=== PATIENT | male | born 1980 | race Caucasian/White ===

== ENCOUNTER 2016-11-16 04:42 | Emergency (ER) | payer BC ==
[2016-11-16 04:49] VITALS: TEMP 97.1
[2016-11-16] MEDS ORDERED: SODIUM CHLORIDE 0.9% 1,000 ML IV ONE (04:58)
[2016-11-16] MEDS ORDERED: ONDANSETRON 4 MG/2 ML VIAL IVP STA (04:59)
[2016-11-16] MEDS ORDERED: TAMSULOSIN 0.4 MG CAP.ER.24H PO STA (04:59)
[2016-11-16] MEDS ORDERED: KETOROLAC 60 MG/2 ML VIAL IVP STA (04:59)
[2016-11-16] MEDS ORDERED: HYDROmorphone 1 MG/ML 1 ML SYRINGE IVP STA ×2 (04:59→05:50)
--- NOTE | 2016-11-16 05:02 | ED ---
General Adult HPI - General Chief complaint: Abdominal Pain Stated complaint: Possible Kidney Stone Time Seen by Provider: 11/16/16 04:45 Source: patient, RN notes reviewed Mode of arrival: ambulatory Limitations: no limitations - History of Present Illness Initial comments: This is a 36-year-old male who presents emergency Department complaining of left -sided flank pain since earlier today. Patient states the pain got severe today went to the emergency department in [place] they diagnosed with kidney stone. CAT scan. Patient states he went home but the pain got bad about an hour ago grossly came down to our emergency department. Patient states he has prescriptions to fill but he was unable to fill them because no pharmacies were open by the time he was discharged from the emergency department. Patient states he has been nauseated with the pain. Patient states he has had blood in the urine. Patient states she's had a history of kidney stones in the past. Patient also has Crohn's disease and ileostomy. Patient denies any recent fever chills or cough. Patient denies any chest pain or palpitations. - Related Data Home Medications Medication Instructions Recorded Confirmed Cyanocobalamin [Vitamin B-12 1,000 mcg SQ WEEKLY 11/16/16 11/16/16 Injection] Voriconazole [Vfend] 50 mg PO 11/16/16 Allergies Allergy/AdvReac Type Severity Reaction Status Date / Time No Known Allergies Allergy Verified 12/05/15 16:19 Review of Systems ROS Statement: Those systems with pertinent positive or pertinent negative responses have been documented in the HPI. ROS Other: All systems not noted in ROS Statement are negative. Past Medical History Past Medical History: Cancer, GERD/Reflux Additional Past Medical History / Comment(s): crohns (humira), hx. kidney stones , gall stones, hip dislocation, bladder cancer, anemia History of Any Multi-Drug Resistant Organisms: None Reported Past Surgical History: Bowel Resection, Hernia Repair Additional Past Surgical History / Comment(s): bowel resection-2011 ( [facility]). bladder sx cancerous tumor removed, EGD Past Anesthesia/Blood Transfusion Reactions: No Reported Reaction Past Psychological History: No Psychological Hx Reported Smoking Status: Former smoker Past Alcohol Use History: Occasional Additional Past Alcohol Use History / Comment(s): quit smoking 2013, smoked on & off 10-15 yrs. PPD: 1 Past Drug Use History: None Reported - Past Family History Mother Family Medical History: Unable to Obtain General Exam - General Exam Comments Initial Comments: GENERAL: Patient is well-developed and well-nourished. Patient is nontoxic and well- hydrated and is in moderate distress. ENT: Neck is soft and supple. No significant lymphadenopathy is noted. Oropharynx is clear. Moist mucous membranes. Neck has full range of motion without eliciting any pain. EYES: The sclera were anicteric and conjunctiva were pink and moist. Extraocular movements were intact and pupils were equal round and reactive to light. Eyelids were unremarkable. PULMONARY: Unlabored respirations. Good breath sounds bilaterally. No audible rales rhonchi or wheezing was noted. CARDIOVASCULAR: There is a regular rate and rhythm without any murmurs gallops or rubs. ABDOMEN: Soft and nontender with normal bowel sounds. No palpable organomegaly was noted. There is no palpable pulsatile mass. SKIN: Skin is clear with no lesions or rashes and otherwise unremarkable. NEUROLOGIC: Patient is alert and oriented x3. Cranial nerves II through XII are grossly intact. Motor and sensory are also intact. Normal speech, volume and content. Symmetrical smile. MUSCULOSKELETAL: Normal extremities with adequate strength and full range of motion. No lower extremity swelling or edema. No calf tenderness. LYMPHATICS: No significant lymphadenopathy is noted PSYCHIATRIC: Normal psychiatric evaluation. Limitations: no limitations Course Vital Signs 11/16/16 04:46 Temperature 97.1 F L Pulse Rate 82 Respiratory 18 Rate Blood Pressure 131/75 O2 Sat by Pulse 98 Oximetry Medical Decision Making - Medical Decision Making Patient was feeling considerably better but still had some residual pain he has for one more shot before he went home since he could not get his prescription filled later today. Patient had a second dose of Dilaudid. Disposition Clinical Impression: Kidney stone Disposition: HOME SELF-CARE Condition: Good Instructions: Kidney Stones (ED) Referrals: Prashant Sykes III, MD [Primary Care Provider] - 1-2 days Time of Disposition: 05:50
[2016-11-16 05:55] VITALS: BP 123/74; PULSE 78; RESP 16
== END 2016-11-16 06:24 | disposition home or self-care (01) ==
LOC: EC 04:42
DX: N20.0 Calculus of kidney (principal); R11.0 Nausea; Z87.891 Personal history of nicotine dependence; Z79.899 Other long term (current) drug therapy; Z85.51 Personal history of malignant neoplasm of bladder; Z98.890 Other specified postprocedural states
CPT/HCPCS: 99284; 96374; 96376; 96375 ×2; 96361; J2405; J1885; J1170

== ENCOUNTER → 2018-09-03 | Outpatient (CLI) | payer BC ==
--- NOTE | 2018-09-03 17:34 | US ---
EXAMINATION TYPE: US venous doppler duplex LE LT DATE OF EXAM: 09/03/2018 5:17 PM COMPARISON: NONE CLINICAL HISTORY: I83.812 Varicose veins with pain LLE. Patient states having left leg pain and swell ing. No hx of blood clots or on blood thinners. No previous surgeries. SIDE PERFORMED: Left TECHNIQUE: The lower extremity deep venous system is examined utilizing real time linear array sonog brigido with graded compression, doppler sonography and color-flow sonography. VESSELS IMAGED: External Iliac Vein (EIV) Common Femoral Vein Deep Femoral Vein Greater Saphenous Vein * Femoral Vein Popliteal Vein Small Saphenous Vein * Proximal Calf Veins (* superficial vessels) FINDINGS: Grayscale, color doppler, spectral doppler imaging performed of the deep veins of the lower extremities. There is normal flow, compressibility, vascular waveforms. IMPRESSION: NEGATIVE FOR DVT, LEFT LOWER EXTREMITY
== END | disposition home or self-care (01) ==
LOC: RADUSWWP 16:50
PROVIDERS: ATTEND Family Medicine
DX: I83.812 Varicose veins of left lower extremity with pain (principal)

== ENCOUNTER 2019-03-11 01:30 | Emergency (ER) | payer BC ==
[2019-03-11] MEDS ORDERED: SODIUM CHLORIDE 0.9% 1,000 ML IV STA (02:14)
[2019-03-11] MEDS ORDERED: HYDROmorphone 1 MG/ML 1 ML SYRINGE IM STA (02:14)
[2019-03-11] MEDS ORDERED: ONDANSETRON 4 MG/2 ML VIAL IVP STA (02:14)
[2019-03-11 03:18] VITALS: RESP 18
[2019-03-11 03:37] LABS: Appearance,Urine Turbid (Clear); Bilirubin,Urine Negative (Negative); Blood,Urine Small (Negative); Color,Urine Yellow; Glucose,Urine (UA) Negative (Negative); Ketones,Urine Negative (Negative); Leukocyte Esterase,Urine Negative (Negative); Mucus,Urine Rare /hpf; Nitrite,Urine Negative (Negative); Protein,Urine Negative (Negative); RBC,Urine 12 /hpf (0-5); Specific Gravity,Urine 1.018 (1.001-1.035); Uric Acid Crystals,Urine Many /hpf; Urobilinogen,Urine <2.0 mg/dL (<2.0)
--- NOTE | 2019-03-11 04:03 | ED ---
Abdominal Pain HPI - General Chief Complaint: Abdominal Pain Stated Complaint: poss kidney stone Time Seen by Provider: 03/11/19 01:50 Source: patient, family Mode of arrival: wheelchair Limitations: no limitations - History of Present Illness Initial Comments: Patient is a 38-year-old male with history of kidney stones and Crohn's is presenting to the emergency department with a chief complaint of abdominal pain. Patient patient reports an ileostomy due to Crohn's. Patient reports ever since the ileostomy placement he develops "thousands" of any stones. Patient reports he almost passes kidney stones daily. Patient reports the pain is in the left flank region. Patient reports the pain is worse than usual. Patient does not report any urinary retention. Patient denies any increased urgency or frequency. Patient denies any dysuria. Patient denies night sweats fever or chills. Patient does report nausea but no vomiting. - Related Data Home Medications Medication Instructions Recorded Confirmed Cyanocobalamin [Vitamin B-12 1,000 mcg SQ WEEKLY 11/16/16 11/16/16 Injection] Voriconazole [Vfend] 50 mg PO 11/16/16 Previous Rx's Medication Instructions Recorded Tamsulosin [Flomax] 0.4 mg PO DAILY #14 cap 03/11/19 Allergies Allergy/AdvReac Type Severity Reaction Status Date / Time No Known Allergies Allergy Verified 03/11/19 01:36 Review of Systems ROS Statement: Those systems with pertinent positive or pertinent negative responses have been documented in the HPI. ROS Other: All systems not noted in ROS Statement are negative. Past Medical History Past Medical History: Cancer, GERD/Reflux Additional Past Medical History / Comment(s): crohns (humira), hx. kidney stones, gall stones, hip dislocation, bladder cancer( in remission,) anemia History of Any Multi-Drug Resistant Organisms: None Reported Past Surgical History: Bowel Resection, Hernia Repair Additional Past Surgical History / Comment(s): bowel resection-2011 ( [facility]). bladder sx cancerous tumor removed, EGD Past Anesthesia/Blood Transfusion Reactions: No Reported Reaction Past Psychological History: No Psychological Hx Reported Smoking Status: Former smoker Past Alcohol Use History: Occasional Past Drug Use History: Marijuana - Past Family History Mother Family Medical History: Unable to Obtain General Exam Limitations: no limitations General appearance: alert, in no apparent distress Head exam: Present: atraumatic, normocephalic, normal inspection Eye exam: Present: normal appearance, PERRL, EOMI Pupils: Present: normal accommodation ENT exam: Present: normal exam, normal oropharynx, mucous membranes moist, TM's normal bilaterally, normal external ear exam Neck exam: Present: normal inspection, full ROM Respiratory exam: Present: normal lung sounds bilaterally Cardiovascular Exam: Present: regular rate, normal rhythm, normal heart sounds GI/Abdominal exam: Present: soft, normal bowel sounds, hernia (Hernia near ileostomy), other (Ileostomy). Absent: tenderness Extremities exam: Present: normal inspection, full ROM Back exam: Present: normal inspection, full ROM, CVA tenderness (L) Neurological exam: Present: alert, oriented X3 Psychiatric exam: Present: normal affect, normal mood Skin exam: Present: warm, intact, normal color Course Vital Signs 03/11/19 03/11/19 03/11/19 01:33 03:17 04:22 Temperature 98.1 F 98.6 F 98.8 F Pulse Rate 98 88 90 Respiratory 20 18 18 Rate Blood Pressure 156/96 136/78 142/74 O2 Sat by Pulse 97 98 100 Oximetry Medical Decision Making - Medical Decision Making Patient is a 38-year-old male with history of Crohn's and kidney stones presenting to emergency Department with a chief complaint of of kidney stones. Patient reports she develops multiple kidney stones due to his ileostomy bag. Patient reports he passes kidney stones in was daily. She denies urinary obstruction or UTI type symptoms. Patient denies fevers night sweats or chills. Patient does have left flank pain that radiates to the groin region. Patient reports he was not able to pass and kidney stones today. UA is indicative of hematuria. Patient given fluids and analgesia. Patient will be discharged with Flomax and Tylenol 3 starter pack. Patient advised not to take the medication when driving or operating heavy machinery. Patient advised to follow-up with urology. Strict return parameters were thoroughly discussed the patient was worsening and agreeable. Case discussed with physician. - Lab Data Lab Results 03/11/19 Range/Units 02:15 Urine Color Yellow Urine Appearance Turbid (Clear) Urine pH 5.0 (5.0-8.0) Ur Specific [place] 1.018 (1.001-1.035) Urine Protein Negative (Negative) Urine Glucose (UA) Negative (Negative) Urine Ketones Negative (Negative) Urine Blood Small H (Negative) Urine Nitrite Negative (Negative) Urine Bilirubin Negative (Negative) Urine Urobilinogen <2.0 (<2.0) mg/dL Ur Leukocyte Esterase Negative (Negative) Urine RBC 12 H (0-5) /hpf Uric Acid Crystals Many H (None) /hpf Urine Mucus Rare H (None) /hpf Disposition Clinical Impression: Kidney stones Disposition: HOME SELF-CARE Condition: Stable Instructions (If sedation given, give patient instructions): Kidney Stones (ED) Additional Instructions: Please follow with urology. Please return to emergency department if symptoms worsen. Prescriptions: Tamsulosin [Flomax] 0.4 mg PO DAILY #14 cap Is patient prescribed a controlled substance at d/c from ED?: No Referrals: Prashant Sykes III, MD [Primary Care Provider] - 1-2 days Time of Disposition: 04:03
[2019-03-11 04:23] VITALS: BP 142/74; PULSE 90; TEMP 98.8
[2019-03-11] MEDS ORDERED: TAMSULOSIN 0.4 MG CAP.ER.24H PO STA (04:38)
[2019-03-11] MEDS ORDERED: ACET/COD 300 MG/30 MG STARTER PACK 6 TAB BTL PO STA (04:39)
[2019-03-11] MEDS ORDERED: HYDROmorphone 1 MG/ML 1 ML SYRINGE IVP STA (04:39)
== END 2019-03-11 05:01 | disposition home or self-care (01) ==
LOC: EC 01:30
DX: N20.0 Calculus of kidney (principal); Z93.2 Ileostomy status; Z87.891 Personal history of nicotine dependence; Z85.51 Personal history of malignant neoplasm of bladder
CPT/HCPCS: 81001; 99284; 96374; 96375; 96361; 96372; J2405; J1170

== ENCOUNTER 2020-12-03 09:29 | Emergency (ER) | payer BC ==
[2020-12-03 09:36] VITALS: RESP 18
[2020-12-03] MEDS: SODIUM CHLORIDE 0.9% 2,000 ML IV STA (10:01)
[2020-12-03] MEDS: ONDANSETRON 4 MG/2 ML VIAL IVP STA (10:03)
[2020-12-03] MEDS: KETOROLAC 15 MG/ML 1 ML VIAL IVP STA (10:05)
[2020-12-03] MEDS: HYDROmorphone 0.5 MG/0.5 ML SYRINGE IVP STA (10:07)
[2020-12-03 10:12] LABS: Basophils # (A) 0.1 k/uL (0-0.2); Basophils % (A) 1 %; Eosinophils # (A) 0.2 k/uL (0-0.7); Eosinophils % (A) 2 %; HCT 46.1 % (39.0-53.0); HGB 16.2 gm/dL (13.0-17.5); Lymphocytes # (A) 1.9 k/uL (1.0-4.8); Lymphocytes % (A) 19 %; MCH 30.1 pg (25.0-35.0); MCHC 35.1 g/dL (31.0-37.0); MCV 85.9 fL (80.0-100.0); Mean Platelet Volume 7.1; Monocytes # (A) 0.7 k/uL (0-1.0); Monocytes % (A) 7 %; Neutrophils % (A) 70 %; Platelet Count 225 k/uL (150-450); RBC 5.37 m/uL (4.30-5.90); RDW 12.7 % (11.5-15.5)
[2020-12-03 10:17] LABS: Appearance,Urine Cloudy (Clear); Bacteria,Urine Moderate /hpf; Bilirubin,Urine Negative (Negative); Blood,Urine Moderate (Negative); Color,Urine Yellow; Glucose,Urine (UA) Negative (Negative); Ketones,Urine Negative (Negative); Leukocyte Esterase,Urine Large (Negative); Mucus,Urine Rare /hpf; Nitrite,Urine Negative (Negative); Protein,Urine 2+ (Negative); RBC,Urine 147 /hpf (0-5); Specific Gravity,Urine 1.018 (1.001-1.035); Urobilinogen,Urine <2.0 mg/dL (<2.0); WBC,Urine >182 /hpf (0-5)
[2020-12-03 10:23] LABS: ALT 28 U/L (4-49); AST 28 U/L (17-59); African American GFR (CKD) >90 (>60 ml/min/1.73 sqM); Albumin 4.1 g/dL (3.5-5.0); Alkaline Phosphatase 92 U/L (38-126); Amylase 58 U/L (30-110); Anion Gap 7 mmol/L; Blood Urea Nitrogen 14 mg/dL (9-20); Calcium 9.4 mg/dL (8.4-10.2); Carbon Dioxide 25 mmol/L (22-30); Chloride 106 mmol/L (98-107); Glucose 112 mg/dL (74-99); Lipase 186 U/L (23-300); Non-African American GFR(CKD) >90 (>60 ml/min/1.73 sqM); Potassium 4.5 mmol/L (3.5-5.1); Sodium 138 mmol/L (137-145); Total Bilirubin 0.7 mg/dL (0.2-1.3); Total Protein 6.8 g/dL (6.3-8.2)
--- NOTE | 2020-12-03 10:35 | ED ---
Abdominal Pain HPI - General Chief Complaint: Abdominal Pain Stated Complaint: kidney stones, UTI Time Seen by Provider: 12/03/20 09:39 Source: patient, RN notes reviewed Mode of arrival: ambulatory Limitations: no limitations - History of Present Illness Initial Comments: This a 40-year-old male presents emergency Department chief complaint of dysuria, bilateral flank pain. Patient states he was treated for urinary tract infection by PCP 2 weeks ago completed a course antibiotics states it did help somewhat states pain has now worsened. Patient states that some clumps are and within his urine. Patient states she's had a history of multiple kidney stones. Patient states that he has a kidney infection. Patient states his does not feel well slight nausea no vomiting no chest pain or shortness of breath. Patient has a long history of Crohn's and multiple abdominal surgeries. - Related Data Home Medications Medication Instructions Recorded Confirmed Loperamide HCl [Imodium A-D] 2 mg PO QID PRN 12/03/20 12/03/20 Omeprazole Magnesium [PriLOSEC] 20 mg PO DAILY 12/03/20 12/03/20 clonazePAM 0.5 mg PO DAILY 12/03/20 12/03/20 inFLIXimab [Remicade] 1 dose IVPB Q42D 12/03/20 12/03/20 Previous Rx's Medication Instructions Recorded Levofloxacin [Levaquin] 500 mg PO DAILY #14 tab 12/03/20 Allergies Allergy/AdvReac Type Severity Reaction Status Date / Time No Known Allergies Allergy Verified 12/03/20 10:44 Review of Systems ROS Statement: Those systems with pertinent positive or pertinent negative responses have been documented in the HPI. ROS Other: All systems not noted in ROS Statement are negative. Past Medical History Past Medical History: Cancer, GERD/Reflux Additional Past Medical History / Comment(s): crohns (humira), hx. kidney stones, gall stones, hip dislocation, bladder cancer( in remission,) anemia History of Any Multi-Drug Resistant Organisms: None Reported Past Surgical History: Bowel Resection, Hernia Repair Additional Past Surgical History / Comment(s): bowel resection-2011 ( [facility]). bladder sx cancerous tumor removed, EGD Past Anesthesia/Blood Transfusion Reactions: No Reported Reaction Past Psychological History: No Psychological Hx Reported Smoking Status: Never smoker Past Alcohol Use History: Occasional Past Drug Use History: Marijuana - Past Family History Mother Family Medical History: Unable to Obtain General Exam Limitations: no limitations General appearance: alert, in no apparent distress Head exam: Present: atraumatic, normocephalic, normal inspection Eye exam: Present: normal appearance, PERRL, EOMI. Absent: scleral icterus, conjunctival injection, periorbital swelling ENT exam: Present: normal exam, normal oropharynx, mucous membranes moist Neck exam: Present: normal inspection, full ROM. Absent: tenderness, m eningismus, lymphadenopathy Respiratory exam: Present: normal lung sounds bilaterally. Absent: respiratory distress, wheezes, rales, rhonchi, stridor Cardiovascular Exam: Present: regular rate, normal rhythm, tachycardia, normal heart sounds. Absent: systolic murmur, diastolic murmur, rubs, gallop, clicks GI/Abdominal exam: Present: soft, normal bowel sounds. Absent: distended, tenderness, guarding, rebound, rigid Back exam: Present: CVA tenderness (R), CVA tenderness (L) Neurological exam: Present: alert Skin exam: Present: warm, dry, intact, normal color. Absent: rash Course Vital Signs 12/03/20 12/03/20 09:31 11:14 Temperature 97.5 F L 97.8 F Pulse Rate 111 H 89 Respiratory 18 18 Rate Blood Pressure 131/74 142/79 O2 Sat by Pulse 95 98 Oximetry Medical Decision Making - Medical Decision Making Patient has evidence of urinary tract infection CT does not show any evidence of ureteral stone no hydronephrosis. Patient's white count within normal limits. Patient was given 2 g Rocephin and discharged on oral antibiotics with urine culture and close follow-up. - Lab Data Result diagrams: 12/03/20 09:55 12/03/20 09:55 Lab Results 12/03/20 12/03/20 12/03/20 Range/Units 09:55 09:55 09:55 WBC 10.0 (3.8-10.6) k/uL RBC 5.37 (4.30-5.90) m/uL Hgb 16.2 (13.0-17.5) gm/dL Hct 46.1 (39.0-53.0) % MCV 85.9 (80.0-100.0) fL MCH 30.1 (25.0-35.0) pg MCHC 35.1 (31.0-37.0) g/dL RDW 12.7 (11.5-15.5) % Plt Count 225 (150-450) k/uL MPV 7.1 Neutrophils % 70 % Lymphocytes % 19 % Monocytes % 7 % Eosinophils % 2 % Basophils % 1 % Neutrophils # 7.0 (1.3-7.7) k/uL Lymphocytes # 1.9 (1.0-4.8) k/uL Monocytes # 0.7 (0-1.0) k/uL Eosinophils # 0.2 (0-0.7) k/uL Basophils # 0.1 (0-0.2) k/uL Sodium 138 (137-145) mmol/L Potassium 4.5 (3.5-5.1) mmol/L Chloride 106 (98-107) mmol/L Carbon Dioxide 25 (22-30) mmol/L Anion Gap 7 mmol/L BUN 14 (9-20) mg/dL Creatinine 0.92 (0.66-1.25) mg/dL Est GFR (CKD-EPI)AfAm >90 (>60 ml/min/1.73 sqM) Est GFR (CKD-EPI)NonAf >90 (>60 ml/min/1.73 sqM) Glucose 112 H (74-99) mg/dL Plasma Lactic Acid Brian (0.7-2.0) mmol/L Calcium 9.4 (8.4-10.2) mg/dL Total Bilirubin 0.7 (0.2-1.3) mg/dL AST 28 (17-59) U/L ALT 28 (4-49) U/L Alkaline Phosphatase 92 (38-126) U/L Total Protein 6.8 (6.3-8.2) g/dL Albumin 4.1 (3.5-5.0) g/dL Amylase 58 (30-110) U/L Lipase 186 (23-300) U/L Urine Color Yellow Urine Appearance Cloudy (Clear) Urine pH 6.0 (5.0-8.0) Ur Specific [place] 1.018 (1.001-1.035) Urine Protein 2+ H (Negative) Urine Glucose (UA) Negative (Negative) Urine Ketones Negative (Negative) Urine Blood Moderate H (Negative) Urine Nitrite Negative (Negative) Urine Bilirubin Negative (Negative) Urine Urobilinogen <2.0 (<2.0) mg/dL Ur Leukocyte Esterase Large H (Negative) Urine RBC 147 H (0-5) /hpf Urine WBC >182 H (0-5) /hpf Urine WBC Clumps Many H (None) /hpf Urine Bacteria Moderate H (None) /hpf Urine Mucus Rare H (None) /hpf 12/03/20 Range/Units 09:55 WBC (3.8-10.6) k/uL RBC (4.30-5.90) m/uL Hgb (13.0-17.5) gm/dL Hct (39.0-53.0) % MCV (80.0-100.0) fL MCH (25.0-35.0) pg MCHC (31.0-37.0) g/dL RDW (11.5-15.5) % Plt Count (150-450) k/uL MPV Neutrophils % % Lymphocytes % % Monocytes % % Eosinophils % % Basophils % % Neutrophils # (1.3-7.7) k/uL Lymphocytes # (1.0-4.8) k/uL Monocytes # (0-1.0) k/uL Eosinophils # (0-0.7) k/uL Basophils # (0-0.2) k/uL Sodium (137-145) mmol/L Potassium (3.5-5.1) mmol/L Chloride (98-107) mmol/L Carbon Dioxide (22-30) mmol/L Anion Gap mmol/L BUN (9-20) mg/dL Creatinine (0.66-1.25) mg/dL Est GFR (CKD-EPI)AfAm (>60 ml/min/1.73 sqM) Est GFR (CKD-EPI)NonAf (>60 ml/min/1.73 sqM) Glucose (74-99) mg/dL Plasma Lactic Acid Brian 1.6 (0.7-2.0) mmol/L Calcium (8.4-10.2) mg/dL Total Bilirubin (0.2-1.3) mg/dL AST (17-59) U/L ALT (4-49) U/L Alkaline Phosphatase (38-126) U/L Total Protein (6.3-8.2) g/dL Albumin (3.5-5.0) g/dL Amylase (30-110) U/L Lipase (23-300) U/L Urine Color Urine Appearance (Clear) Urine pH (5.0-8.0) Ur Specific [place] (1.001-1.035) Urine Protein (Negative) Urine Glucose (UA) (Negative) Urine Ketones (Negative) Urine Blood (Negative) Urine Nitrite (Negative) Urine Bilirubin (Negative) Urine Urobilinogen (<2.0) mg/dL Ur Leukocyte Esterase (Negative) Urine RBC (0-5) /hpf Urine WBC (0-5) /hpf Urine WBC Clumps (None) /hpf Urine Bacteria (None) /hpf Urine Mucus (None) /hpf Disposition Clinical Impression: Urinary tract infection Disposition: HOME SELF-CARE Condition: Stable Instructions (If sedation given, give patient instructions): Urinary Tract Infection in Men (ED) Additional Instructions: Please return to the Emergency Department if symptoms worsen or any other concerns. Prescriptions: Levofloxacin [Levaquin] 500 mg PO DAILY #14 tab Is patient prescribed a controlled substance at d/c from ED?: No Referrals: Prashant Sykes III, MD [Primary Care Provider] - 1-2 days Lamberto Briseno MD [STAFF PHYSICIAN] - 1-2 days Time of Disposition: 12:11
--- NOTE | 2020-12-03 11:02 | CT ---
EXAMINATION TYPE: CT abdomen pelvis wo con DATE OF EXAM: 12/03/2020 COMPARISON: 05/02/2017 INDICATION: Bilateral flank pain with urination changes. Passing "infection looking clots" per patie nt. DLP: 965.7 mGycm, Automated exposure control for dose reduction was used. CONTRAST: 0 mL of Isovue 300. Study performed without Oral Contrast TECHNIQUE: Axial images were obtained from above the diaphragm to the pubic rami in the axial plane a t 5 mm thick sections. Reconstructed images are reviewed on the computer in the coronal plane. FINDINGS: Limited CT sections are obtained the lung bases. The lung bases are clear. CT ABDOMEN: Liver: Normal Spleen: Normal Pancreas: Normal Adrenal glands: The adrenal glands are normal. Gallbladder: Normal Kidneys: No masses are evident. No hydronephrosis is present. There is a large cyst on the anterior superior pole left kidney measuring 9 cm 4 Hounsfield units. There is a 1.8 cm cyst measuring 15 Roberto nsfield units anterior mid right kidney. There are multiple bilateral nonobstructing renal calcificat ions are present. The larger calcifications at superior pole left kidney measures 0.4 cm. A mid left renal calcification measures up to 0.5 cm. Inferior pole left renal calcification measures 0.4 cm. Pu nctate calcifications are within the right kidney. No hydronephrosis or obstructing stones are eviden t. Aorta: Vascular calcification is within the aorta. Inferior vena cava: Normal. CT PELVIS: Previous large left pelvic ostomy has been surgically repaired. Loops of bowel within the abdomen and pelvis are normal. There are loops of bowel which are incom pletely distended or lack oral contrast limiting their evaluation. Appendix: Not identified. No suspicious inflammatory changes are dilated tubular structures are evide nt Urinary bladder: Normal. Genitourinary structures: Prostate is unremarkable. Osseous structures: No suspicious lytic or sclerotic lesions. IMPRESSIONS: 1. Multiple bilateral nonobstructing renal stones, large stones are on the left. 2. Renal cysts, larger at the superior pole left kidney measures 9 cm.
[2020-12-03 11:18] VITALS: BP 142/79; PULSE 89; TEMP 97.8
[2020-12-03] MEDS: HYDROmorphone 1 MG/ML 1 ML SYRINGE IVP STA (11:18)
== END 2020-12-03 12:24 | disposition home or self-care (01) ==
LOC: EC 09:29
DX: N39.0 Urinary tract infection, site not specified (principal); K21.9 Gastro-esophageal reflux disease without esophagitis; F12.90 Cannabis use, unspecified, uncomplicated; Z87.442 Personal history of urinary calculi
CPT/HCPCS: 36415; 80053; 82150; 83605; 83690; 85025; 81001; 87040; 87086; 74176; 99284; 96374; 96375 ×3; 96376; 96361 ×2; J2405; J0696; J1170 ×2; J1885; 87077; 87186

== ENCOUNTER → 2021-05-30 | Outpatient (CLI) | payer BC ==
[2021-05-30 19:53] LABS: Ferritin 81.8 ng/mL (22.0-322.0)
[2021-05-30 21:52] LABS: % Iron Saturation 26.73 (15.00-50.00); Iron 122 ug/dL (65-175); Total Iron Binding Capacity 456 ug/dL (228-460)
[2021-05-30 22:08] LABS: C Reactive Protein <0.30 mg/dL (0.00-0.80)
== END | disposition home or self-care (01) ==
LOC: LABWHC1 10:49
PROVIDERS: ATTEND Physician Assistant
DX: K50.019 Crohn's disease of small intestine with unspecified complications (principal)
CPT/HCPCS: 36415; 82728; 83540; 83550; 83993; 85652; 86140

== ENCOUNTER → 2022-11-09 | Outpatient (CLI) | payer BC ==
[2022-11-09 14:48] LABS: Basophils # (A) 0.07 X 10*3/uL (0.00-0.10); Basophils % (A) 1.4 %; Eosinophils # (A) 0.11 X 10*3/uL (0.04-0.35); Eosinophils % (A) 2.2 %; HCT 45.6 % (39.6-50.0); Immature Grans, Automated 0.2 %; Lymphocytes # (A) 1.75 X 10*3/uL (0.90-5.00); Lymphocytes % (A) 34.4 %; MCH 29.6 pg (27.0-32.0); MCHC 32.9 g/dL (32.0-37.0); MCV 89.9 fL (80.0-97.0); Mean Platelet Volume 9.7 fL (9.5-12.2); Monocytes # (A) 0.43 X 10*3/uL (0.20-1.00); Monocytes % (A) 8.4 %; NRBC Per 100 WBC 0 /100 WBCS (0.0-0.0); Neutrophils # (A) 2.72 X 10*3/uL (1.80-7.70); Neutrophils % (A) 53.4 %; Platelet Count 269 X 10*3/uL (140-440); RBC 5.07 X 10*6/uL (4.40-5.60); RDW 12.5 % (11.5-14.5); WBC 5.09 X 10*3/uL (4.50-10.00)
[2022-11-09 15:08] LABS: Hepatitis B Surface AB- Quant 3.5 mIU/mL; Hepatitis B Surface Antibody Nonreactive (Nonreactive)
[2022-11-09 15:22] LABS: % Iron Saturation 21.01 (15.00-50.00); African American GFR (CKD) 75.5 (60.0-200.0); Albumin 4.2 g/dL (3.8-4.9); Albumin/Globulin Ratio 1.75 (1.60-3.17); Anion Gap 11.5 mmol/L (10.00-18.00); BUN/Creat Ratio 12.27 Ratio (12.00-20.00); Blood Urea Nitrogen 16.2 mg/dL (9.0-27.0); C Reactive Protein 0.4 mg/dL (0.00-0.80); Calcium 9.5 mg/dL (8.7-10.3); Carbon Dioxide 24.4 mmol/L (20.0-27.5); Ferritin 65.4 ng/mL (22.0-322.0); Globulin 2.4 g/dL (1.6-3.3); Non-African American GFR(CKD) 65.2 (60.0-200.0); Potassium 4.9 mmol/L (3.5-5.5); Total Bilirubin 0.3 mg/dL (0.30-1.20); Total Protein 6.5 g/dL (6.2-8.2)
[2022-11-09 15:58] LABS: Erythrocyte Sedimentation Rate 5 mm/Hr (0-15)
[2022-11-09 17:00] LABS: Hepatitis B Core IgM Nonreactive (Nonreactive); Hepatitis B Surface Antigen Nonreactive (Nonreactive)
== END | disposition home or self-care (01) ==
LOC: LABWHC1 08:51
PROVIDERS: ATTEND Physician Assistant
DX: K50.019 Crohn's disease of small intestine with unspecified complications (principal)
CPT/HCPCS: 36415; 80053; 82306; 82607; 82728; 83540; 83550; 85025; 85652; 86140; 86480; 86705; 86706; 87340

== ENCOUNTER → 2024-02-15 | Outpatient (CLI) | payer BC | END | disposition home or self-care (01) | LOC: LABWHC1 08:00 | PROVIDERS: ATTEND Physician Assistant | DX: Z53.9 Procedure and treatment not carried out, unspecified reason (principal) ==

== ENCOUNTER → 2024-03-11 | Day surgery (SDC) | payer BC ==
[2024-03-11 08:40] VITALS: BP 117/74; PULSE 76; RESP 16; TEMP 97.7
[2024-03-11] MEDS: GLUCAGON 1 MG/ML VIAL IM STA (09:18)
--- NOTE | 2024-03-20 07:05 | MR ---
EXAMINATION TYPE: MR Enterography DATE OF EXAM: 03/12/2024 9:01 AM COMPARISON: 07/14/2015, 12/03/2020 CT CLINICAL INDICATION: Male 43 years old with a history of K56.699 small bowel stricture. Crohn's dise ase. TECHNIQUE: Standard multiplanar, multisequence imaging of the abdomen is performed without and with I V contrast, patient is injected with 11 mL intravenous Gadavist gadolinium contrast. Oral 1500 breeza was given as per enterography protocol. FINDINGS: LOWER CHEST: No significant findings. ABDOMEN Bowel: Suspected postsurgical change to the right lower quadrant terminal ileum. Loop of decompressed bowel in the right lower quadrant without other signs of active Crohn's disease. The small bowel dis tention is inadequate proximally. No evidence to suggest abnormal bowel wall thickening involving a small bowel or large bowel. No evidence of bowel obstruction. No evidence for mucosal hyperenhanceme nt, stricture or fistulous tract formation. Left inguinal hernia with portion of large bowel throughout the intracranial into the hernia surgery 12/23/2013. Peritoneum: No evidence of pneumoperitoneum, free fluid, or adenopathy. Liver: Unremarkable. Gallbladder and Bile ducts: Unremarkable. Pancreas: Unremarkable. Spleen: Unremarkable. Adrenal glands: Unremarkable. Kidneys: Bilateral high T2 signal cysts measuring up to 84 mm on the left and 41 mm on the right whic h are high T2 signal. There is a low T2 signal in the left posterior kidney possibly representing hem orrhagic/proteinaceous cyst. No evidence for hydronephrosis. Nonobstructing calculi seen on prior CT at that the present. Complex area posterior to the dominant left renal cyst on the left series 901 im age 352. Seems to be enlarging compared to prior MRE. Bladder: Unremarkable. Reproductive: Unremarkable. Lymph Nodes: Vasculature: Unremarkable. No aortic aneurysm. Musculoskeletal: The osseous structures appear intact. Abdominal wall: Unremarkable. IMPRESSION: 1. Postsurgical changes to the bowel without evidence for active bowel disease. No evidence for bow el obstruction. 2. Complex area posterior to the dominant left renal cyst on the left series 901 image 352. Seems to be enlarging compared to prior MRA. Additional Type I and type II equivalent renal cysts are suggest ed. Renal mass protocol MRI recommended with subtraction imaging to exclude renal mass to the posteri or left kidney. 3. Left inguinal hernia containing loop of sigmoid colon. Correlate for area of patient's pain [facility], , 03/20/2024 7:03 AM
== END ==
LOC: RADMRIMAIN 07:44
PROVIDERS: ATTEND Physician Assistant
DX: K40.90 Unilateral inguinal hernia, without obstruction or gangrene, not specified as recurrent (principal); K50.90 Crohn's disease, unspecified, without complications; N28.1 Cyst of kidney, acquired
CPT/HCPCS: 72197; 74183

== ENCOUNTER 2024-09-12 13:26 | Day surgery (SDC) | payer BC ==
--- NOTE | 2024-09-11 12:18 | P.HPIHPCON ---
History of Present Illness H&P Date: 09/11/24 Chief Complaint: Right ureteral stone, left renal stone This is a 44-year-old male history of recurrent kidney stones. Underwent a CT that showed 9 mm right-sided proximal stone and 11 mm left-sided renal stone, he is symptomatic from his right stone and would like to proceed with removal. Of note he also wants to address his left-sided renal stone given the size of it. Discussed with him the option of a bilateral ureteroscopy versus ESWL. He agreed to proceed with bilateral ureteroscopy with holmium laser. He is aware of the risk which include but not limited to bleeding, infection, injury to the ureter Consent for Procedure: I have explained the operation/procedure to the patient, including the risks, benefits, side effects, alternative therapies (including not receiving the proposed treatment or service), the likelihood of the patient achieving his/her goals, and potential recuperation problems for the procedure/sedation/analgesia, as well as any blood products, if indicated. I also explained to the patient the risks, benefits and side effects of the alternatives, as well as the risks related to not receiving the proposed procedure, care, treatment, or services. Past Medical History Past Medical History: Cancer, GERD/Reflux Additional Past Medical History / Comment(s): crohns (humira), hx. kidney stones, gall stones, hx. of right hip dislocation, bladder cancer( in remission,) anemia, past hx. histoplasmosis History of Any Multi-Drug Resistant Organisms: None Reported Past Surgical History: Bowel Resection, Hernia Repair Additional Past Surgical History / Comment(s): bowel resection x3 ( [facility]). bladder sx cancerous tumor removed, EGD, hip surg. for dislocation, cysto/lithotripisies Past Anesthesia/Blood Transfusion Reactions: No Reported Reaction Smoking Status: Former smoker - Past Family History Mother Family Medical History: Unable to Obtain Medications and Allergies Home Medications Medication Instructions Recorded Confirmed Type Omeprazole Magnesium [PriLOSEC] 20 mg PO DAILY 12/03/20 09/11/24 History inFLIXimab [Remicade] 1 dose IVPB Q30D 12/03/20 09/11/24 History ALPRAZolam [Xanax] 0.5 mg PO DAILY 03/11/24 09/11/24 History Cyanocobalamin [Vitamin B-12 1,000 mcg SQ Q14D 09/11/24 09/11/24 History Injection] Diphenox-Atrop 2.5-0.025 mg 1 - 2 tab PO QID PRN 09/11/24 09/11/24 History [Lomotil] FLUoxetine HCL [PROzac] 40 mg PO DAILY 09/11/24 09/11/24 History HYDROcodone/APAP 5-325MG [[place] 1 tab PO Q6HR PRN 09/11/24 09/11/24 History 5-325] Tamsulosin [Flomax] 0.4 mg PO DAILY 09/11/24 09/11/24 History Allergies Allergy/AdvReac Type Severity Reaction Status Date / Time No Known Allergies Allergy Verified 09/11/24 09:24 Surgical - Exam - General no distress, moderate pain - Eyes normal ocular movement, no pale - ENT normal nares, normal mucosa - Respiratory normal expansion, normal respiratory effort - Abdomen Abdomen: soft, non tender, no distended - Psychiatric oriented to time, oriented to person, oriented to place Assessment and Plan Assessment: OR for bilateral ureteroscopy, holmium laser lithotripsy, stone basketing, and stent insertion
[~2024-09-12 13:26] MED LIST: HYDROmorphone 0.5 MG/0.5 ML SYRINGE IVP PRN; LIDOCAINE 1% (10MG/ML) FOR IV START INTRADERMA PRN; MIDAZOLAM 2 MG/2 ML VIAL IV PRN; fentaNYL (PF) 50 MCG/ML 2 ML AMP IVP PRN
--- NOTE | 2024-09-12 14:00 | XR ---
EXAMINATION TYPE: XR KUB DATE OF EXAM: 09/12/2024 1:43 PM COMPARISON: None. CLINICAL INDICATION: Male, 44 years old with history of N20.0 renal stone / N20.1 ureteral stone, TECHNIQUE: Single view of the abdomen. FINDINGS: Right renal calculi: None Visualized. Right ureteral calculi: None Visualized. Left renal calculi: 1.6 cm calculus overlying the lower pole of the left kidney. Left ureteral calculi: Faint calculus left hemipelvis measuring 4.3 mm could reside within the urete r. Correlate clinically. Pelvic calcifications: Yes Bowel gas pattern is unremarkable. No free air. No mass effects. IMPRESSION: 1. As above [facility], , 09/12/2024 1:57 PM
[2024-09-12 14:23] VITALS: TEMP 97.1
[2024-09-12] MEDS: ONDANSETRON 4 MG/2 ML VIAL IVP ONE (14:39)
[2024-09-12] MEDS: LACTATED RINGERS 1,000 ML IV SCH (14:39)
[2024-09-12] MEDS: DEXAMETHASONE SOD PHOSPHATE 4 MG/ML 1 ML VIAL IV ONE (14:40)
[2024-09-12] MEDS: IV FLUID CONTINUATION 1,000 ML IV ONE (14:41)
[2024-09-12 14:43] LABS: HCT 44.1 % (39.0-53.0); MCH 29.6 pg (25.0-35.0); MCHC 34.1 g/dL (31.0-37.0); MCV 86.8 fL (80.0-100.0); Mean Platelet Volume 7.4; Platelet Count 270 k/uL (150-450); RBC 5.08 m/uL (4.30-5.90); RDW 12.5 % (11.5-15.5); WBC 9.2 k/uL (3.8-10.6)
[2024-09-12 14:59] LABS: African American GFR (CKD) 31 (>60 ml/min/1.73 sqM); Anion Gap 9 mmol/L; Blood Urea Nitrogen 26 mg/dL (9-20); Calcium 9.4 mg/dL (8.4-10.2); Carbon Dioxide 26 mmol/L (22-30); Chloride 105 mmol/L (98-107); Glucose 88 mg/dL (74-99); Non-African American GFR(CKD) 27 (>60 ml/min/1.73 sqM); Potassium 4.6 mmol/L (3.5-5.1); Sodium 140 mmol/L (137-145)
[2024-09-12] MEDS ORDERED: MIDAZOLAM 2 MG/2 ML VIAL ONE (15:52)
[2024-09-12] MEDS ORDERED: LIDOCAINE 1% INJ 10MG/ML (20 ML MDV) ONE (15:52)
[2024-09-12] MEDS ORDERED: KETOROLAC 15 MG/ML 1 ML VIAL ONE (15:52)
[2024-09-12] MEDS ORDERED: fentaNYL (PF) 50 MCG/ML 2 ML AMP ONE (15:52)
[2024-09-12] MEDS ORDERED: SUCCINYLCHOLINE CHLORIDE 200 MG/10 ML VIAL IV ONE (15:52)
[2024-09-12] MEDS ORDERED: HYDROmorphone (PF) 1 MG/ML ONE (15:52)
[2024-09-12] MEDS ORDERED: PROPOFOL 10 MG/ML 20 ML VIAL IV ONE (15:52)
--- NOTE | 2024-09-12 17:54 | P.OP ---
Date of Procedure: 09/12/24 Preoperative Diagnosis: left ureteral, bilateral renal stone Postoperative Diagnosis: Same Procedure(s) Performed: Cystoscopy, bilateral ureteroscopy, hemiaplasia lithotripsy, stone basketing and stent insertion Implants: 6 Cymro by 28 cm stents in the bilateral ureter left on a string Anesthesia: RONALDO Surgeon: Deion Gan Estimated Blood Loss (ml): 10 Pathology: other (Bilateral kidney stones) Condition: stable Disposition: PACU Indications for Procedure: This is a 44-year-old male history of recurrent kidney stones. Underwent a CT that showed 9 mm right-sided proximal stone and 11 mm left-sided renal stone, he is symptomatic from his right stone and would like to proceed with removal. Of note he also wants to address his left-sided renal stone given the size of it. Discussed with him the option of a bilateral ureteroscopy versus ESWL. He agreed to proceed with bilateral ureteroscopy with holmium laser. He is aware of the risk which include but not limited to bleeding, infection, injury to the ureter Operative Findings: Large stone in the right distal ureter, multiple large stones throughout the left kidney Description of Procedure: Patient brought the operating room, general anesthesia was induced. He was prepped and draped in sterile fashion placed in dorsolithotomy position. Cystoscopy fitted through the 21 Cymro sheath was inserted per urethra, cystoscopy was performed showed no abnormality within the bladder. Next a semirigid ureteroscope was inserted per urethra and advanced up the right ureteral orifice, a stone was encountered in the distal ureter. Using the holmium laser the stone was fragmented, stone fragments were removed using the stone basket. At this time I advanced the scope into the proximal ureter which showed no additional stones, pullback ureteroscopy was performed showed no injury to the ureter or any ureteral stones. As ureteroscope was withdrawn a sensor wire was advanced through. Next an 1113 Cymro access sheath was passed over the wire and into the proximal ureter. Next a flexible ureteroscope was inserted through the access sheath, renoscopy was performed which showed no stones within the kidney. Pullback ureteroscopy was performed showed no injury to the kidney or any ureteral stones, of note patient's ureter was quite dilated all the way down to the UVJ. Next ureteral stent was passed over the wire, the proximal curl was visualized on fluoroscopy and the distal curl was visualized using the cystoscope. The stent was left on a string and taped to the patient penis. At this point attention was carried to the left side, the cystoscope was reinserted per urethra. The left ureteral orifice was visualized and intubated with a sensor wire, the wire was advanced under fluoroscopy into the kidney. Next a 1113 Cymro access sheath was passed over the wire into the proximal ureter. Next a flexible ureteroscope was inserted through the access sheath, renoscopy was performed showed multiple large stones throughout the kidney, using the holmium laser the stones were dusted, any sizable fragments were removed using the stone basket. Of note there was significant amount of dust and fragments as there was quite a bit of stones within the kidney this limited visualization, but there was no obvious sizable fragments. Pullback ureteroscopy was performed showed no injury to the ureter or any ureteral sto hanh, as ureteroscope was withdrawn a sensor wire was advanced through. Next a ureteral stent was passed over the wire, the proximal curl was visualized on fluoroscopy and the distal curl was visualized using cystoscope. Both stents were left on a string and taped to the patient penis. Patient was awakened from anesthesia and taken to recovery in stable condition
--- NOTE | 2024-09-12 18:06 | FL ---
EXAMINATION TYPE: FL guidance operating room Intraoperative/procedural fluoroscopic services were pro vided. CLINICAL INDICATION:Male, 44 years old with history of Bilateral ureteral stones; , [facility] FINDINGS: Fluoroscopic images demonstrate bilateral ureteral stents. No radiographic evidence for complication. Total fluoroscopy time is 61 seconds. DAP: 5.0164 Gycm2 Please see the operative/procedural note for further details. [facility], , 09/12/2024 6:03 PM
[2024-09-12 19:03] VITALS: BP 130/85; PULSE 72; RESP 20
[2024-09-12] MEDS: SODIUM CHLORIDE 0.9% 1,000 ML IV ONE (19:14)
== END 2024-09-12 20:00 | disposition home or self-care (01) ==
LOC: OR 13:26
PROVIDERS: ATTEND Urology
DX: N20.2 Calculus of kidney with calculus of ureter (principal); K21.9 Gastro-esophageal reflux disease without esophagitis; D64.9 Anemia, unspecified; Z85.51 Personal history of malignant neoplasm of bladder; Z87.891 Personal history of nicotine dependence; Z98.890 Other specified postprocedural states; Z79.899 Other long term (current) drug therapy
CPT/HCPCS: 52356; 80048; 85027; 82365; 74018; C2625; C1769; J2250; J0330; J1100; J0690; J2405; J2003; J3010; J1171; J1885; J2704